=== PATIENT | male | born 1995 | race Caucasian/White ===

== ENCOUNTER 2024-08-17 11:22 | Emergency (ER) | payer OTHER, SELFPAY ==
[2024-08-17 11:23] VITALS: BP 137/88; PULSE 65; RESP 16; TEMP 36.4; O2SAT 98; BMI 24.7
--- NOTE | 2024-08-17 11:34 | RAD_ITS ---
PROCEDURE: ANKLE MIN 3 VIEWS REASON FOR EXAM: 29-year-old male, trauma yesterday. TECHNIQUE: 3 views of the left ankle COMPARISON: None FINDINGS: No visible fracture. No suspicious bone lesion. Normal alignment. Mortise appears intact. No effusion. Soft tissues are unremarkable. RAD/Ankle min 3 Views IMPRESSION: NO VISIBLE FRACTURE. IF THERE IS ONGOING CLINICAL SUSPICION FOR FRACTURE CONSID ER FOLLOWUP IMAGING IN 7-10 DAYS. Reading Location: [id number]
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
[2024-08-17 12:42] VITALS: BP 132/72; PULSE 62; RESP 15; TEMP 36.9; O2SAT 99
== END 2024-08-17 12:44 | disposition home or self-care (01) ==
PROVIDERS: Emergency Provider Emergency Medicine; Visit Provider Emergency Medicine
DX: S93.402A Sprain of unspecified ligament of left ankle, initial encounter (principal); S90.02XA Contusion of left ankle, initial encounter; V86.56XA Driver of dirt bike or motor/cross bike injured in nontraffic accident, initial encounter
CPT/HCPCS: 73610; 99283